=== PATIENT | female | born 1965 | race Caucasian/White ===

== ENCOUNTER → 2022-10-25 | Day surgery (SDC) | payer OTHER ==
[2022-10-23 13:51] VITALS: BMI 28.7
[~2022-10-25] MED LIST: ACETAMINOPHEN INJECTION 100 ML IVPB ONE; BUPIVACAINE HCL/PF 2.5 MG/ML - 30 ML VIAL IJ ONE; CLINDAMYCIN 600MG PREMIX IVPB 600 MG/50 ML BAG IVPB ONE; DEXAMETHASONE SOD PHOSPHATE 4 MG/1 ML VIAL ONE; FENTANYL CITRATE/PF 50 MCG/ML VIAL ONE; GLYCOPYRROLATE 0.2 MG/1 ML VIAL ONE; KETOROLAC TROMETHAMINE 30 MG/1 ML VIAL ONE; LACTATED RINGERS SOLUTION 1,000 ML IV SCH; LIDOCAINE HCL/PF 2% SDV 5ML VIAL ONE; MIDAZOLAM HCL 2 MG/2 ML SINGLE DOSE VIAL ONE; ONDANSETRON 4 MG/2 ML VIAL IVPUSH PRN; ONDANSETRON 4 MG/2 ML VIAL ONE; PROMETHAZINE HCL 25 MG/1 ML VIAL IVPB PRN; PROPOFOL 20 ML ONE; oxyCODONE HCL 5 MG TABLET ONE; oxyCODONE HCL 5 MG TABLET PO PRN
[2022-10-25 07:23] VITALS: RESP 16
[2022-10-25 10:53] VITALS: TEMP 97.6
[2022-10-25 11:30] VITALS: BP 107/62; PULSE 72
== END | disposition home or self-care (01) ==
LOC: FASU 06:56
PROVIDERS: ATTEND Orthopaedic Surgery
PROC: 0SBD4ZZ Excision of Left Knee Joint, Percutaneous Endoscopic Approach (ICD-10-PCS; principal; 2022-10-25 09:15)
DX: S83.242A Other tear of medial meniscus, current injury, left knee, initial encounter (principal); S83.8X2A Sprain of other specified parts of left knee, initial encounter; M65.862 Other synovitis and tenosynovitis, left lower leg; X58.XXXA Exposure to other specified factors, initial encounter; Y93.9 Activity, unspecified; Y92.9 Unspecified place or not applicable
CPT/HCPCS: 94760